=== PATIENT | male | born 1960 | race Caucasian/White ===

== ENCOUNTER 2019-03-09 21:48 | Emergency (ER) | payer OTHER ==
[2019-03-09 22:01] VITALS: BP 172/96; PULSE 76; TEMP 98.5; BMI 28.0
--- NOTE | 2019-03-09 22:34 | PDOC ---
Documentation entered by Joce Odell SCRIBE, acting as scribe for Carlos Law MD. Carlos Law MD: This documentation has been prepared by the Jos eR bennett Xhesika, SCRIBE, under my direction and personally reviewed by me in its entirety. I confirm that the documentation accurately reflects all work, treatment, procedures, and medical decision making performed by me. History of Present Illness - General Chief Complaint: Injury Stated Complaint: LH 2ND FINGER INJURY Time Seen by Provider: 03/09/19 21:50 History Source: Patient, Family Exam Limitations: No Limitations - History of Present Illness Initial Comments: 03/09/19 22:06 The patient is a 59 year old male, with no significant PMH of HTN who presents to the emergency department with L hand 2nd finger laceration. Patient does not speak the language, however, family at bedside notes the patient was working around the house and hit his thumb with a hammer. Pt notes [place] been [place] the country [place], is unsure if he ever got a tetanus, but received numerous amounts of shots before coming to the country. PAST MEDICAL HISTORY: HTN PAST SURGICAL HISTORY: no significant history FAMILY HISTORY: no pertinent history SOCIAL HISTORY: Pt lives with family and is employed. MEDICATIONS: reviewed ALLERGIES: As per nursing notes 03/09/19 22:32 Assessment and plan: This is a 59-year-old male who injured his left hand second finger when he smashed it with a hammer. Patient comes in complaining of pain to the distal phalanx. Patient did have a laceration as well as a hematoma at the base of the nail. The laceration was on the palmar side of the distal phalanx. X-ray showed a tuft fracture of the distal phalanx there is a laceration over the fracture making it an open fracture so patient was started on an antibiotic Bactrim DS first dose was given in the ED and a prescription was sent to his pharmacy for him to continue it. Laceration was cleaned and closed X-ray showed tuft fracture of the distal phalanx. Procedure note: Laceration repair Finger was anesthetized via digital block with 4 cc of lidocaine no epinephrine Finger was irrigated with normal saline approximately 100 cc using a 0 wet with pressure Laceration was closed with a total of 3 sutures of 5-0 Ethilon Bacitracin and sterile dressing were applied patient tolerated well Past History - Past Medical History Allergies/Adverse Reactions: Allergies Allergy/AdvReac Type Severity Reaction Status Date / Time No Known Allergies Allergy Unverified 03/09/19 21:49 Home Medications: Ambulatory Orders Sulfamethoxazole/Trimethoprim [Bactrim DS -] 1 tab PO BID #14 tablet 03/09/19 COPD: No HTN: Yes - Surgical History Abdominal Surgery: Yes - Psycho Social/Smoking Cessation Hx Smoking History: Current some day smoker Have you smoked in the past 12 months: Yes Information on smoking cessation initiated: Yes Review of Systems - Review of Systems Able to Perform ROS?: Yes Comments:: 03/09/19 22:08 General: No fevers or chills, no weakness, no weight loss HEENT: No change in vision. No sore throat,. No ear pain CardioVascular: No chest pain or shortness of breath Respiratory:No cough, or wheezing. Gastrointestinal: no nausea, vomiting, diarrhea or constipation, No rectal bleeding Genitourinary: No dysuria, hematuria, or frequency Musculoskeletal: + L hand 2nd finger laceration. Neurologic: No headache, vertigo, dizziness or loss of consciousness Psychiatric: nor depression Skin: No rashes or easy bruising Endocrine: no increased thirst or abnormal weight change Allergic: no skin or latex allergy All other systems reviewed and normal *Physical Exam - Vital Signs Last Vital Signs Temp Pulse Resp BP Pulse Ox 98.5 F 76 16 172/96 H 97 03/09/19 21:57 03/09/19 21:57 03/09/19 21:57 03/09/19 21:57 03/09/19 21:57 - Physical Exam Comments: 03/09/19 22:08 GENERAL: The patient is awake, alert, and fully oriented, in no acute distress. HEAD: Normal with no signs of trauma. EYES: Pupils equal, round and reactive to light, extraocular movements intact, sclera anicteric, conjunctiva clear. EXTREMITIES: + ecchymosis of palmar side, tip of distal phalanx with 1cm laceration. + ecchymosis to dorsum of finger at base of nail. Neurovascular intact. NEUROLOGICAL: Normal speech, normal gait. PSYCH: Normal mood, normal affect. SKIN: Warm, Dry, normal turgor, no rashes or lesions noted. ED Treatment Course - RADIOLOGY Radiology Studies Ordered: Category Date Time Status FINGER(S) LEFT [RAD] Stat Radiology 03/09/19 21:57 Ordered Discharge - Discharge Information Problems reviewed: Yes Clinical Impression/Diagnosis: Laceration of left index finger Finger fracture, left Qualifiers: Encounter type: initial encounter Finger: index finger Fracture type: open Phalanx: distal Fracture alignment: displaced Qualified Code(s): S62.631B - Displaced fracture of distal phalanx of left index finger, initial encounter for open fracture Condition: Stable Disposition: HOME - Admission No - Follow up/Referral Referrals: Shi Sharma MD [Primary Care Provider] - - Patient Discharge Instructions Patient Printed Discharge Instructions: DI for Laceration Repair Additional Instructions: It is important that you take an antibiotic to prevent an infection. I sent a prescription to your pharmacy for an antibiotic get it filled and take it twice a day for 7 days. Keep the laceration dry for 72 hours wear a glove when bathing or washing her hand to keep it dry. You can change the dressing once a day clean the laceration with a little peroxide and reapply some bacitracin and a Band-Aid Follow-up with your primary care doctor or an orthopedist in 1 week for suture removal. Tylenol or Motrin as needed for pain. Return to the emergency department immediately with ANY new, persistent or worsening symptoms. Continue any medications as previously prescribed by your physician. You should follow up with your primary doctor as soon as possible regarding today's emergency department visit. . Please make sure your doctor reviews the results of your emergency evaluation. Thank you for coming to the Emergency Department today for your care. It was a pleasure to see you today. Please note that your evaluation is INCOMPLETE until you follow-up with your doctor. - Post Discharge Activity
[2019-03-09] MEDS ORDERED: SULFAMETHOXAZOLE/TRIMETHOPRIM 800MG/160MG D.S. TABLET PO ONE (22:44)
[2019-03-09] MEDS ORDERED: SULFAMETHOXAZOLE/TRIMETHOPRIM 800MG/160MG D.S. TABLET ONE (22:45)
[2019-03-09] MEDS ORDERED: IBUPROFEN 400 MG TABLET (FP) PO ONE ×2 (22:50→22:51)
== END 2019-03-09 22:56 | disposition home or self-care (01) ==
LOC: SUPCPDRO 21:48 → FER 21:48
DX: S62.631A Displaced fracture of distal phalanx of left index finger, initial encounter for closed fracture (principal); S61.211A Laceration without foreign body of left index finger without damage to nail, initial encounter; W23.0XXA Caught, crushed, jammed, or pinched between moving objects, initial encounter; Y93.9 Activity, unspecified; Y92.9 Unspecified place or not applicable
CPT/HCPCS: 73140-TC-LT-FY; 99281-25

== ENCOUNTER 2022-04-24 22:15 | Emergency (ER) | payer OTHER ==
[2022-04-24 22:31] VITALS: PULSE 90; RESP 18; TEMP 98; BMI 29.8
[2022-04-24] MEDS ORDERED: ASPIRIN 325 MG TABLET PO ONE (22:33)
[2022-04-24] MEDS ORDERED: morphine CARPU-JECT 4 MG/1 ML DISP.SYRIN IVPUSH ONE (22:57)
[2022-04-24] MEDS ORDERED: morphine SULFATE 4 MG/ML VIAL ONE (23:03)
[2022-04-24] MEDS ORDERED: ASPIRIN 325 MG TABLET ONE (23:03)
[2022-04-24 23:08] LABS: BASO % 0.9 % (0-2.0); EOS % 0.7 % (0-4.5); HEMOGLOBIN 15.1 GM/dL (11.7-16.9); LYMPH % 39.5 % (8-40); MCH 27.4 pg (25.7-33.7); MCHC 33.6 g/dl (32.0-35.9); MEAN CELL VOLUME 81.6 fl (80-96); MEAN PLT VOLUME 9.4 fl (7.5-11.1); MONO % 8.5 % (3.8-10.2); NEUT % 50.4 % (42.8-82.8); PLATELET COUNT 252 10^3/uL (134-434); RBC 5.51 M/mm3 (4.00-5.60); RDW 14.7 % (11.9-15.9)
[2022-04-24 23:14] LABS: INR 1.07 (0.83-1.09); PROTHROMBIN TIME (PATIENT) 12.3 SEC (9.7-13.0)
[2022-04-24 23:17] LABS: ACTIVATED PTT 35.7 SECONDS (25.2-36.5)
[2022-04-24 23:30] LABS: CALCIUM 9.6 mg/dL (8.5-10.1)
[2022-04-24 23:31] LABS: ALBUMIN 4.2 g/dl (3.4-5.0); BLOOD UREA NITROGEN 16.3 mg/dL (7-18); MAGNESIUM 2.4 mg/dL (1.8-2.4)
[2022-04-24 23:34] LABS: CREATININE 1.3 mg/dL (0.55-1.3)
[2022-04-24 23:38] LABS: TOT PROT 7.8 g/dl (6.4-8.2)
[2022-04-24 23:44] LABS: BILIRUBIN,TOTAL 0.8 mg/dL (0.2-1)
[2022-04-24] MEDS ORDERED: HEPARIN INFUSION - 25,000 UNITS/500 ML INFUS.BAG IVPB SCH ×2 (23:45)
[2022-04-24 23:56] VITALS: BP 168/117
[2022-04-24] MEDS ORDERED: HEPARIN NA (PORCINE) 5,000 UNITS/ML 1ML VIAL IVPUSH PRN ×4 (23:56→23:59)
[2022-04-25] MEDS ORDERED: TICAGRELOR 90 MG TABLET PO ONE (23:19)
== END 2022-04-25 00:23 | disposition short-term general hospital (02) ==
LOC: JER 22:15
PROC: 3E033GC Introduction of Other Therapeutic Substance into Peripheral Vein, Percutaneous Approach (ICD-10-PCS; principal; 2022-04-24)
DX: I21.3 ST elevation (STEMI) myocardial infarction of unspecified site (principal)
CPT/HCPCS: 0241U-QW; 36415; 71045-TC-FY; 71275-TC; 74174-TC; 80053; 82553; 83735; 84484; 85025; 85610; 85730; 86850; 86900; 86901; 93005; 93010; 99291; J1644